=== PATIENT | female | born 1965 | race Caucasian/White ===

== ENCOUNTER 2017-01-23 04:26 | Emergency (ER) | payer OTHER ==
[~2017-01-23] VITALS: Ht 154.9 cm; Wt 65.0 kg
[2017-01-23 04:39] VITALS: BP 114/72; PULSE 89; RESP 18; TEMP 98.1; O2SAT 98
[2017-01-23 04:58] LABS: BASOPHIL # 0.1 TH/MM3 (0-0.2); BASOPHIL % 1.4 % (0.0-2.0); EOSINOPHIL # 0.2 TH/MM3 (0-0.4); EOSINOPHIL % 4.8 % (0.0-4.0); HEMATOCRIT 31.5 % (35.0-46.0); HEMO FLAGS DIFF FINAL; LYMPH % 42.7 % (9.0-44.0); LYMPHOCYTE # 1.8 TH/MM3 (1.0-4.8); MEAN CELL VOLUME 101.3 FL (80.0-100.0); MEAN CORPUSCULAR HEMOGLOBIN 35.4 PG (27.0-34.0); MEAN CORPUSCULAR HGB CONC 34.9 % (32.0-36.0); MONO % 5.2 % (0.0-8.0); NEUT % 45.9 % (16.0-70.0); PLATELET COUNT 220 TH/MM3 (150-450); RED BLOOD COUNT 3.11 MIL/MM3 (4.00-5.30); RED CELL DISTRIBUTION WIDTH 13.6 % (11.6-17.2); WHITE BLOOD COUNT 4.3 TH/MM3 (4.0-11.0)
[2017-01-23 05:05] LABS: AMPHETAMINE, URINE NEG (NEG); BARBITURATES, URINE NEG (NEG); COCAINE, URINE NEG (NEG)
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
[2017-01-23 05:31] LABS: ANION GAP 17 MEQ/L (5-15)
[2017-01-23 05:34] LABS: ACETAMINOPHEN LESS THAN 2.0 MCG/ML (10.0-30.0); ALKALINE PHOSPHATASE 136 U/L (45-117); ALT (GPT) 75 U/L (10-53); AST (GOT) 81 U/L (15-37); BICARBONATE 21.2 MEQ/L (21.0-32.0); BLOOD UREA NITROGEN 6 MG/DL (7-18); CHLORIDE 99 MEQ/L (98-107); GLOMERULAR FILTRATION RATE 67 ML/MIN (>89); SODIUM (NA) 137 MEQ/L (136-145); TOTAL BILIRUBIN ADULT 0.2 MG/DL (0.2-1.0)
[2017-01-23] MEDS ORDERED: diphenhydrAMINE HCL 50 MG CAP PO ONE (05:45)
[2017-01-23] MEDS ORDERED: POTASSIUM CHLORIDE 20 MEQ CONTROLLED RELEASE TAB PO ONE (06:00)
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
[2017-01-23 11:00] VITALS: BP 109/65; PULSE 86; RESP 18
[2017-01-23 14:00] VITALS: BP 114/79; PULSE 93; RESP 18
[2017-01-23] MEDS ORDERED: ONDANSETRON ODT 4 MG TAB PO ONE (14:45)
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
[2017-01-23 17:20] VITALS: BP 109/63; PULSE 71; RESP 18
== END 2017-01-23 18:57 | disposition home or self-care (01) ==
LOC: NEPA 04:26 → NEPJ 18:57
DX: F32.9 Major depressive disorder, single episode, unspecified (principal); F19.94 Other psychoactive substance use, unspecified with psychoactive substance-induced mood disorder; F19.10 Other psychoactive substance abuse, uncomplicated; E87.6 Hypokalemia; R45.851 Suicidal ideations; R50.9 Fever, unspecified; R05 Cough; R53.81 Other malaise; I10 Essential (primary) hypertension; E07.9 Disorder of thyroid, unspecified; Z72.0 Tobacco use; Z87.09 Personal history of other diseases of the respiratory system; Z86.59 Personal history of other mental and behavioral disorders
CPT/HCPCS: 71010; 72040; 80053; 80307; 80320; 80329; 84703; 85025; 99284; G0480